=== PATIENT | male | born 1955 | race Caucasian/White ===

== ENCOUNTER → 2016-05-14 | Outpatient (CLI) | payer BC ==
[2016-05-14 16:10] LABS: BLOOD UREA NITROGEN 14 mg/dL (7-22); BUN/CREATININE RATIO 15.55 (6-20); CHLORIDE 106 meq/L (98-112); CREATININE 0.9 mg/dL (0.70-1.50); EST GLOMERULAR FILTRATION > 60 (>60 ml/min/1.73m(2)); GLUCOSE 121 mg/dL (78-110); POTASSIUM 4.4 meq/L (3.8-5.2); SODIUM 143 meq/L (135-145)
[2016-05-14 16:11] LABS: ASPARTATE AMINO TRANSFERASE 32 IU/L (21-57); BILIRUBIN,TOTAL 0.5 mg/dL (0.3-1.2); CALCIUM 10.5 mg/dL (8.7-10.7); TOTAL PROTEIN 7.6 g/dL (6.1-8.0)
[2016-05-14 16:49] LABS: LDL CHOLESTEROL,CALCULATED 115.4 mg/dL
== END ==
LOC: MOB LAB 15:27
DX: I10 Essential (primary) hypertension (principal); E78.5 Hyperlipidemia, unspecified; E55.9 Vitamin D deficiency, unspecified; R97.20 Elevated prostate specific antigen [PSA]; Z12.5 Encounter for screening for malignant neoplasm of prostate
CPT/HCPCS: 36415; 80053; 80061; 82306; 84443; G0103

== ENCOUNTER → 2016-05-15 | Outpatient (CLI) | payer BC ==
[2016-05-15 10:44] LABS: BILIRUBIN,URINE NEGATIVE (NEG); CLARITY,URINE Slightly Clo (CLEAR); GLUCOSE, URINE (UA) NEGATIVE (NEG); LEUKOCYTE ESTERASE ,URINE NEGATIVE (NEG); NITRATE,URINE NEGATIVE (NEG); OCCULT BLOOD,URINE NEGATIVE (NEG); PROTEIN,URINE NEGATIVE (NEG); UROBILINOGEN,URINE 0.2 mg/dL (0.2)
[2016-05-15 10:45] LABS: URINE SAMPLE TYPE CLEAN CATCH URINE
[2016-05-15 10:59] LABS: RBC,URINE 0 /hpf; WBC,URINE 0
== END ==
LOC: MOB LAB 08:57
DX: I10 Essential (primary) hypertension (principal)
CPT/HCPCS: 81001

== ENCOUNTER → 2016-12-03 | Outpatient (CLI) | payer BC ==
--- NOTE | 2016-12-03 16:36 | DI ---
History: Mass on left lower leg Comparison: None There is a marked area of palpable abnormality anterior aspect of the mid lower leg. within this are a, there is a 1.1 x 0.9 x 1.0 cm well delineated hypodense lesion. Hounsfield densities range from 1 5-25, slightly higher than would be expected with a simple cyst, but this is likely a cystic lesion. Exact etiology is indeterminate by these images. There are no soft tissue inflammatory changes. Normal muscle/fat planes are preserved throughout the lower leg. There is no cortical disruption in the adjacent tibia. There is no endosteal scalloping. Incidental is made of a 7 mm exostosis extending from in the cortex of the proximal tibia. There are old fractures in the proximal tibia and fibula Impression: Roughly 1 cm well delineated lesion within the subcutaneous tissue overlying the anterior aspect of t he mid lower leg. Hounsfield density is slightly higher than would be expected with a simple cyst, bu t this likely represents a cystic lesion. Exact etiology is indeterminate by these images. There are no destructive osseous lesions Old fractures of the proximal tibia and fibula
== END ==
LOC: CT 10:48
DX: R22.42 Localized swelling, mass and lump, left lower limb (principal)
CPT/HCPCS: 73700

== ENCOUNTER → 2016-12-12 | Outpatient (CLI) | payer BC ==
[2016-12-12 12:51] LABS: BASOPHILS # (AUTO) 0.04 10*3/UL; EOSINOPHILS # (AUTO) 0.12 10*3/UL; EOSINOPHILS % (AUTO) 2.9 % (0-8); HEMOGLOBIN 15.6 g/dL (14.0-18.0); LYMPHOCYTES # (AUTO) 0.88 10*3/uL; MEAN CORPUSCULAR HEMOGLOBIN 30.5 PG (27-31); MEAN CORPUSCULAR HGB CONC 33.9 g/dL (33-37); MONOCYTES # (AUTO) 0.38 10*3/UL (0.3-0.8); MONOCYTES % (AUTO) 9.2 % (5-15); NEUTROPHILS # (AUTO) 2.72 10*3/UL; NEUTROPHILS % (AUTO) 65.5 % (50-80); RED BLOOD COUNT 5.11 10^6/uL (4.70-6.10)
[2016-12-12 12:56] LABS: PLATELET MORPHOLOGY COMMENT NORMAL MORPHOLOGY (NORM); RBC MORPHOLOGY COMMENT NORMAL MORPHOLOGY (NORM); WBC MORPHOLOGY COMMENT NORMAL MORPHOLOGY (NORM)
== END ==
LOC: MOB LAB 10:16
DX: R97.20 Elevated prostate specific antigen [PSA] (principal); I10 Essential (primary) hypertension
CPT/HCPCS: 36415; 84153; 85025